=== PATIENT | female | born 2000 | race Hispanic/Latino ===

== ENCOUNTER → 2023-01-07 13:32 | Outpatient (CLI) | payer OTHER, SELFPAY ==
[2023-01-10 15:10] LABS: QuantiFERON Mitogen Value >10.00 IU/mL (.); QuantiFERON Nil Value 0.01 IU/mL (.); QuantiFERON TB Gold Plus Negative (Negative); QuantiFERON TB2 Ag Value 0.02 IU/mL (.)
== END ==
PROVIDERS: Referring Provider Physician Assistant; Visit Provider Physician Assistant
DX: R76.11 Nonspecific reaction to tuberculin skin test without active tuberculosis (principal)
CPT/HCPCS: 36415; 86480

== ENCOUNTER → 2023-01-14 14:09 | Outpatient (CLI) | payer OTHER, SELFPAY ==
[2023-01-14 14:58] LABS: Influenza A - CEPHEID Flu A NEGATIVE (NEGATIVE); Influenza B - CEPHEID Flu B NEGATIVE (NEGATIVE); Respiratory Syncytial Virus Negative (Negative)
[2023-01-14 15:06] LABS: COVID-19 CEPHEID 4-PLEX PCR Negative (Negative)
== END ==
PROVIDERS: Visit Provider Physician Assistant
DX: R05.1 Acute cough (principal)
CPT/HCPCS: 0241U

== ENCOUNTER 2023-02-26 22:04 | Emergency (ER) | payer OTHER, SELFPAY ==
[2023-02-26 22:21] VITALS: BP 124/74; PULSE 84; RESP 18; TEMP 36.6; O2SAT 99; BMI 28.3
--- NOTE | 2023-02-26 22:48 | DI.US.S_ITS ---
PROCEDURE: US OB LIMITED INDICATIONS: BLEEDING OUTSIDE/PRIOR DATING DATA: Last menstrual period (LMP): Unknown First dating scan (date and location): 02/21/2023. Estimated date of delivery (TOM) from first dating scan: 08/26/2023. TECHNIQUE: Real-time scanning was performed of the fetus, with image documentation and biometry. COMPARISON: [facility], , OB < 14 WEEKS, 02/21/2023, 13:23. FINDINGS: A single living intrauterine gestation is present. Presentation: Vertex, early. Placenta: Placental position is posterior, without previa. heart rate: 158 beats per minute. Maternal cervical canal: 3.9 cm long. Normal lower limit is 2.5 cm. BPD is 2.6 cm, 14 weeks and 3 days Head circumference is 9.7 cm, 14 weeks and 3 days Abdominal circumference is 8.2 cm, 14 weeks and 4 days Femur length is 1.3 cm, 13 weeks and 6 days Clinically estimated gestational age: 14 weeks and 2 days Estimated gestational age from initial scan: 14 weeks and 2 days. IMPRESSION: Biometry within expected range. Living intrauterine gestation. Recommend follow-up growth and anatomy scan at 20 weeks. Dictated by: Yunior Gallo M.D. on 02/27/2023 at 0:27 Approved by: Yunior Gallo M.D. on 02/27/2023 at 0:29
--- NOTE | 2023-02-26 22:56 | ED_ITS ---
HPI - General Chief complaint: OB/Uterine Contractions Stated complaint: 14 weeks , bleeding Time Seen by Provider: 02/26/23 22:09 Source: patient Mode of arrival: Ambulatory Limitations: no limitations History of Present Illness HPI Narrative: 22-year-old at 14 weeks gestational age presents by private vehicle for vaginal bleeding earlier this evening. Reports several drops of bright red blood and associated generalized abdominal cramping. Also reports generalized headache that was not relieved with Tylenol earlier today. Confirmed IUP, states she had an ultrasound yesterday that showed that ?everything was normal?. Reports blood type AB-positive. Related Data Allergies Allergy/AdvReac Type Severity Reaction Status Date / Time No Known Drug Allergies Allergy Verified 02/26/23 23:03 Review of Systems Review of Systems Narrative: Negative except as noted above Exam Initial Vital Signs Initial Vital Signs: Vital Signs Temperature 98 F 02/26/23 22:21 Pulse Rate 84 02/26/23 22:21 Respiratory Rate 18 02/26/23 22:21 Blood Pressure 124/74 02/26/23 22:21 Pulse Oximetry 99 02/26/23 22:21 Oxygen Delivery Method Room Air 02/26/23 22:21 Const: Awake, alert, no acute distress, nontoxic appearing Eyes: PERRL, EOMI, conjunctiva normal ENT: Atraumatic, dentition normal, mucous membranes moist Cardiac: regular rate, regular rhythm RESP: unlabored, clear bilaterally, no wheezing GI: Atraumatic, soft, nontender, nondistended, no rebound, no guarding : Deferred Skin: Warm, Dry, intact, no rashes Neuro: AO x3, CN II-XII grossly intact, moves all extremities Psych: affect normal, mood normal, not suicidal, not homicidal Course Course Course Narrative: Vaginal bleeding in early . Already confirmed IUP. Hemodynamically stable, patient's blood type is AB-positive. Ultrasound shows no concerning intrauterine findings. Laboratory work is otherwise unremarkable. Patient counseled on results at bedside, recommended pelvic rest until seen and cleared by OBGYN. ED return precautions discussed at bedside. Patient expressed understanding of the plan and is in agreement at this time. All questions answered at the time of discharge. Orders Ordered: ED Orders 02/26/23 20:39 UA Complete [Urinalysis and Microscopic] Stat 02/26/23 22:48 US OB limited Stat 02/26/23 23:06 Beta HCG, Quant [HCG Quantitative /Beta subunit] Stat CBC Auto Diff [Complete Blood Count AUTO DIFF] Stat CMP [Comprehensive Metabolic Panel] Stat Discontinued Medications Diphenhydramine HCl (Diphenhydramine 50 Mg/Ml Vial) 50 mg IV NOW ONE Stop: 02/26/23 22:56 Last Admin: 02/26/23 23:31 Dose: 50 mg Documented By: OCHOA Sodium Chloride (Normal Saline 0.9%) 1,000 mls @ 1,000 mls/hr IV BOLUS ONE Stop: 02/26/23 23:54 Last Infusion: 02/27/23 00:38 Dose: Infused Documented By: Admin: 02/26/23 23:30 Dose: 1,000 mls/hr Documented By: OCHOA Metoclopramide HCl (Metoclopramide 10 Mg/2 Ml Inj) 10 mg IV NOW ONE Stop: 02/26/23 22:56 Last Admin: 02/26/23 23:31 Dose: 10 mg Documented By: OCHOA Vital Signs Vital signs: Vital Signs - 8 hr 02/26/23 22:21 02/26/23 23:37 02/26/23 23:38 Temperature 98 F Pulse Rate 84 90 Respiratory Rate 18 Blood Pressure 124/74 118/69 Pulse Oximetry 99 98 Oxygen Delivery Method Room Air 02/26/23 23:38 02/27/23 00:00 02/27/23 00:00 Temperature Pulse Rate 85 87 Respiratory Rate Blood Pressure 107/57 L Pulse Oximetry 99 100 Oxygen Delivery Method Room Air 02/27/23 00:12 02/27/23 00:12 Temperature Pulse Rate 87 Respiratory Rate Blood Pressure 113/65 Pulse Oximetry 98 Oxygen Delivery Method Room Air MDM - OB/Uterine Contractions Differential Diagnosis Differential diagnosis: Likely other (Threatened , normal , miscarriage) Lab Data 02/26/23 23:06 02/26/23 23:06 Labs: Lab Results 02/26/23 02/26/23 Range/Units 20:39 23:06 WBC 11.0 (4.5-11.0) X10^3/uL RBC 3.94 L (4.0-5.2) X10^6/uL Hgb 11.5 L (12.0-16.0) g/dL Hct 33.4 L (36-46) % MCV 84.8 (80-100) fL MCH 29.2 (26-34) PG MCHC 34.5 (30-36) % RDW 13.0 (11.6-14.8) % Plt Count 244 (150-400) X10^3/uL Neut % (Auto) 58.9 (50-75) % Lymph % (Auto) 29.9 (25-40) % [place] % (Auto) 9.1 (3-14) % Eos % (Auto) 1.6 L (2-4) % Baso % (Auto) 0.5 (0-2) % Neut # (Auto) 6500 (4248-2685) /uL Lymph # (Auto) 3300 (8819-7809) /uL [place] # (Auto) 1000 H (0-900) /uL Eos # (Auto) 200 (0-450) /uL Baso # (Auto) 100 (0-100) /uL Sodium 136 L (137-145) mmol/L Potassium 3.4 (3.4-5.1) mmol/L Chloride 106 (98-107) mmol/L Carbon Dioxide 22 (22-32) mmol/L BUN 9 (7-17) mg/dL Creatinine 0.40 L (0.52-1.04) mg/dL Estimated GFR > 60 (>60) mL/min BUN/Creatinine Ratio 22.5 H (6-22) Glucose 107 H (70-100) mg/dL Calcium 9.1 (8.4-10.2) mg/dL Total Bilirubin 0.4 (0.2-1.3) mg/dL AST 26 (14-36) IU/L ALT 27 (<35) IU/L Alkaline Phosphatase 46 (38-126) U/L Total Protein 6.8 (6.3-8.2) g/dL Albumin 3.7 (3.5-5.0) g/dL Globulin 3.1 (1.7-4.1) g/dL Albumin/Globulin Ratio 1.2 (1.0-2.8) HCG, Quant 51857 mIU/mL Urine Color Yellow Urine Appearance Clear Urine pH 7.0 (4.5-8.0) Ur Specific [place] 1.010 (1.000-1.035) Urine Protein Negative (Negative) Urine Glucose (UA) Negative (Negative) g/dL Urine Ketones Negative (NEGATIVE) Urine Occult Blood Negative (Negative) Urine Nitrate Negative (Negative) Urine Bilirubin Negative (NEGATIVE) Urine Urobilinogen 0.2 (0.2) E.U./dL Ur Leukocyte Esterase Negative (NEGATIVE) Urine RBC None seen (0-5/HPF) Urine WBC None seen (0-5/HPF) Ur Squamous Epith Cells 1-5 /hpf (0-5/HPF) Urine Bacteria Few (2-10) H (None) Ur Culture Indicated? Cult not indicated Discharge Plan Departure Patient Disposition: Home Clinical Impression: Vaginal bleeding during , Headache Instructions: DI for -- Discomforts and Remedies Activity Restrictions/Additional Instructions: I recommend pelvic rest (nothing in the vagina) until seen and cleared by OBGYN Stand Alone Forms: Patient Portal/API
[2023-02-26 23:19] LABS: Add Manual Diff / Slide Review NO; Basophils Absolute Auto 100 /uL (0-100); Basophils Percent Auto 0.5 % (0-2); Eosinophils Absolute Auto 200 /uL (0-450); Eosinophils Percent Auto 1.6 % (2-4); Hematocrit 33.4 % (36-46); Hemoglobin 11.5 g/dL (12.0-16.0); Lymphocytes Absolute Auto 3300 /uL (1100-4500); Lymphocytes Percent Auto 29.9 % (25-40); Mean Corpuscular HGB Conc 34.5 % (30-36); Mean Corpuscular Hemoglobin 29.2 PG (26-34); Mean Corpuscular Volume 84.8 fL (80-100); Monocytes Absolute Auto 1000 /uL (0-900); Monocytes Percent Auto 9.1 % (3-14); Neutrophils Absolute Auto 6500 /uL (1500-7000); Neutrophils Percent Auto 58.9 % (50-75); Platelet Count 244 X10^3/uL (150-400); Red Blood Cell Count 3.94 X10^6/uL (4.0-5.2)
[2023-02-26 23:27] LABS: Alanine Aminotransferase 27 IU/L (<35); Albumin 3.7 g/dL (3.5-5.0); Albumin Globulin Ratio 1.2 (1.0-2.8); Alkaline Phosphatase 46 U/L (38-126); Aspartate Aminotransferase 26 IU/L (14-36); BUN Creatinine Ratio 22.5 (6-22); Bilirubin Total 0.4 mg/dL (0.2-1.3); Blood Urea Nitrogen 9 mg/dL (7-17); Calcium 9.1 mg/dL (8.4-10.2); Carbon Dioxide 22 mmol/L (22-32); Chloride 106 mmol/L (98-107); Estimated Glomerular Filt Rate > 60 mL/min (>60); Globulin 3.1 g/dL (1.7-4.1); Glucose 107 mg/dL (70-100); HEMOLYSIS < 15 (0-50); Potassium 3.4 mmol/L (3.4-5.1); Sodium 136 mmol/L (137-145); Total Protein 6.8 g/dL (6.3-8.2)
[2023-02-26] MEDS: SODIUM CHLORIDE 0.9% 1,000 ML 1000 ML IV (23:30)
[2023-02-26] MEDS: METOCLOPRAMIDE 10 MG/2 ML INJ IV (23:31)
[2023-02-26] MEDS: diphenhydrAMINE 50 MG/ML VIAL IV (23:31)
[2023-02-26 23:37] VITALS: PULSE 90; O2SAT 98
[2023-02-26 23:38] VITALS: BP 118/69; PULSE 85; O2SAT 99
[2023-02-27] VITALS: BP 107/57; PULSE 87; O2SAT 100
[2023-02-27 00:06] LABS: Appearance Urine UA CLEAR; Bilirubin Urine UA NEGATIVE (NEGATIVE); Color Urine UA YELLOW; Glucose Urine UA NEGATIVE (Negative); Ketones Urine UA NEGATIVE (NEGATIVE); Leukocyte Esterase Urine UA NEGATIVE (NEGATIVE); Nitrite Urine UA NEGATIVE (Negative); Occult Blood Urine UA NEGATIVE (Negative); Protein Urine UA NEGATIVE (Negative); Urobilinogen Urine UA 0.2 E.U./dL (0.2)
[2023-02-27 00:12] VITALS: BP 113/65; PULSE 87; O2SAT 98
[2023-02-27 00:13] LABS: Bacteria Urine Few (2-10); Culture Indicated Urine Cult Not Indicated; RBC Urine None Seen (0-5/HPF); Squamous Epithelial Cell Urine 1-5 /HPF (0-5/HPF); WBC Urine None Seen (0-5/HPF)
[2023-02-27 00:26] LABS: HCG Quantitative /Beta subunit 34723 mIU/mL
[2023-02-27 00:30] VITALS: BP 105/58; PULSE 88; O2SAT 97
== END 2023-02-27 00:48 | disposition home or self-care (01) ==
PROVIDERS: Emergency Provider Emergency Medicine
DX: O20.9 Hemorrhage in early pregnancy, unspecified (principal); O26.892 Other specified pregnancy related conditions, second trimester; R51.9 Headache, unspecified; Z3A.14 14 weeks gestation of pregnancy
CPT/HCPCS: 36415; 76815; 80053; 81001; 84702; 85025; 96361; 96374; 96375; 99284; J1200; J2765